=== PATIENT | female | born 1975 | race Caucasian/White ===

== ENCOUNTER 2024-04-04 17:03 | Emergency (ER) | payer OTHER, SELFPAY ==
[2024-04-04 17:07] VITALS: BP 119/88
[2024-04-04 17:39] LABS: % Basophils 1.2 % (0-2); % Eosinophils 1.7 % (0-6); % Immature Granulocytes 0.1 % (0-0.5); % Lymphocytes 39.6 % (20.5-51.1); % Monocytes 6.5 % (1.7-9.3); % Neutrophils 50.9 % (42.2-75.2); Absolute Basophils 0.1 10^3/uL (0-0.2); Absolute Eosinophils 0.1 10^3/uL (0-0.7); Absolute Monocytes 0.5 10^3/uL (0.1-0.6); Absolute Neutrophils 3.9 10^3/uL (1.4-6.5); Hematocrit 37.2 % (37.0-47.0); Hemoglobin 12.5 g/dL (12.0-16.0); Mean Corp Hgb Conc. 33.6 g/dL (33.0-37.0); Mean Corpuscular Hgb 29.8 pg (27.0-31.0); Mean Corpuscular Volume 88.6 fL (81.0-99.0); Mean Platelet Volume 9.4 fL (7.4-10.4); Nucleated Red Blood Cells % 0 %; Platelet Count 415 10^3/uL (130-400); Red Cell Dist. Width 13.2 % (11.5-14.5); White Blood Cell Count 7.6 10^3/uL (4.8-10.8)
[2024-04-04 17:52] LABS: ALT (SGPT) 20 U/L (0-35); AST (SGOT) 21 U/L (14-36); Albumin 4.6 g/dl (3.5-5.0); Alkaline Phosphatase 63 U/L (38-126); Blood Urea Nitrogen 8 mg/dl (7-17); Calcium 9.3 mg/dl (8.4-10.2); Carbon Dioxide 25 mmol/L (22-30); Chloride 102 mmol/L (98-107); Glucose 100 mg/dl (70-99); Potassium 4.2 mmol/L (3.5-5.1); Sodium 140 mmol/L (135-145); Total Bilirubin 0.2 mg/dl (0.2-1.3); Total Protein 7.5 g/dl (6.3-8.2); eGFR > 60.00
[2024-04-04 19:09] VITALS: BP 122/70
--- NOTE | 2024-04-04 21:20 | ED.GENMED ---
History of Present Illness
General
Chief Complaint: Vaginal Bleeding
Time Seen by Provider: 04/04/24 19:21
History of Present Illness
History of Present Illness:
48-year-old female without significant past medical history presenting to the emergency department for persistent vaginal bleeding. Patient reports for the past month she has had vaginal bleeding. She has been following closely with her
collar pointer, had an outpatient ultrasound that showed a uterine fibroid. She subsequently had a biopsy of the fibroid, however they did not get enough tissue for adequate sample. No some generalized cramping, without any significant pain. Her
collar pointer offered her oral contraceptive pills, however she declined. She is concern for malignant process, denies known history of cancer in her family or any personal history. Denies any urinary complaints. Notes that she previously was
having normal menstrual cycles. Does report some occasional dizziness and lightheadedness, is concerned about her blood counts. Denies history of anemia or requirement for blood transfusion. Does note that she has had a few palpitations as well,
denies known cardiac history. Denies additional acute medical complaints
Past History
Past History
ED Past Medical History: None
ED Past Surgical History: Cholecystectomy, and Gynecological
Social History
Tobacco: Non-smoker
Phy Exam
Physical Exam
Physical Exam:
General: Well-appearing, no clinical signs of dehydration, nontoxic and in no acute distress
HEENT: protecting airway
Neck: appears supple
CV: Normal heart rate, regular rhythm, no evidence of cyanosis
Resp: No accessory muscle use, no increased work of breathing, lungs clear to auscultation bilaterally
Abd: Soft and non-distended, no tenderness to palpation
Extremities: No deformities, no swelling, no erythema
Neuro: alert, no focal neurologic deficit
: deferred
Rectal: deferred
Psych: Normal affect
Skin: Intact
Course
Orders/Labs/Results
Orders:
Orders
04/04/24 17:14
Complete Blood Count/With Diff Urgent
Comprehensive Metabolic Panel Urgent
04/04/24 20:03
US Pelvis Only (non-obstetric) Urgent
Comment:
Reason For Exam: dysfunctional uterine bleeding
04/04/24 21:20
Urinalysis Urgent
04/04/24 21:22
Electrocardiogram (*1) Stat
Reason for Study: Palpitations
Electrocardiogram (*1) Urgent
EKG- Treatment ONCE
Abnormal Lab Results
04/04/24
17:14
Plt Count 415 H 10^3/uL
(130-400)
Glucose 100 H mg/dl
(70-99)
04/04/24 17:14
04/04/24 17:14
Vital Signs
Initial and Last Documented VS:
Initial Vital Signs
Pulse Resp BP Pulse Ox
88 18 119/88 99
04/04/24 17:07 04/04/24 17:07 04/04/24 17:07 04/04/24 17:07
Last Documented Vital Signs
Pulse Resp BP Pulse Ox
80 20 122/70 100
04/04/24 19:09 04/04/24 19:09 04/04/24 19:09 04/04/24 19:09
MDM/Problems Addressed
MDM/Problems Addressed:
48-year-old female without significant past medical history presenting for increased vaginal bleeding and prolonged menstrual cycle. Vital signs are normal.
On exam patient is very well-appearing, nontoxic, without clinical signs of volume depletion or dehydration. Abdominal exam is benign, no tenderness to abdomen, no tenderness to the back. Ultimately suspect dysfunctional uterine bleeding. Patient
reports that her workup for her symptoms have been done at [facility], recently had an ultrasound completed on 03/25 which showed a 5 cm fibroid, for which her doctor tried to get a biopsy of, unsuccessful. She is concerned regarding the
fibroid and expresses primary concern for cancer as source of her bleeding. Ultrasound report reviewed by me, no abnormality to the ovaries. Patient had screening laboratory analysis by assessment, normal hemoglobin. At this time no concern for
symptomatic anemia or significant hemorrhage. No indication for CT abdominal imaging, no reproducible tenderness to abdomen. Patient offered a repeat ultrasound of the pelvis, and she would like to proceed with this testing. Will also screen
with EKG, and noted some palpitations prior to arrival.
21:40 - Patient no longer wants to wait for ultrasound. Feel reasonable, given hemodynamic stability and outpatient gynecologic following. EKG obtained, nonischemic without evidence of arrhythmia. Feel stable for discharge with continued
gynecologic follow-up. Return precautions discussed and patient verbalized understanding
*Critical Care Note
Total Time (30-74mins, 75-104mins- exclusive of procedures): Not Applicable
ED Attending Note
-
Portions of this chart may have been created with voice recognition software.� Occasional wrong word or��sound alike� substitutions may have occurred due to the inherent limitations of voice recognition software.
Discharge Plan
Departure
Referrals:
Dennis Carpio MD [Family Provider] -
Interventions
Interventions:
*Risk Screen - Suicide Last Done: 04/04/24 17:09
*Neglect/Abuse Screening Last Done: 04/04/24 17:09
Discharge Date and Time
Print Language: LITHUANIAN
[2024-04-04 21:43] VITALS: BP 123/85
== END 2024-04-04 21:45 | disposition home or self-care (01) ==
LOC: EMR 17:03
PROVIDERS: Emergency Medicine; EMERGENCY PHYSICIAN Student in an Organized Health Care Education/Training Program; FAMILY PHYSICIAN Internal Medicine
DX: N93.8 Other specified abnormal uterine and vaginal bleeding (principal); D25.9 Leiomyoma of uterus, unspecified; R00.2 Palpitations; Z90.49 Acquired absence of other specified parts of digestive tract
CPT/HCPCS: 99284; 80053; 85025; 93005

== ENCOUNTER 2024-04-12 07:01 | Day surgery (SDC) | payer OTHER, SELFPAY ==
[2024-04-12] VITALS (9 sets, daily range): BP systolic 90–106; BP diastolic 53–72; BMI 22.7
[2024-04-12] MEDS: CELEBREX 200 MG PO (11:02)
[2024-04-12] MEDS: TYLENOL 1000 MG PO (11:02)
== END 2024-04-12 14:27 | disposition home or self-care (01) ==
LOC: SDS 07:01
PROVIDERS: ATTENDING PHYSICIAN Obstetrics & Gynecology
DX: N87.9 Dysplasia of cervix uteri, unspecified (principal); K31.A0 Gastric intestinal metaplasia, unspecified; N93.9 Abnormal uterine and vaginal bleeding, unspecified; R93.89 Abnormal findings on diagnostic imaging of other specified body structures
CPT/HCPCS: 58558; 88305; 86850; 86900; 86901

== ENCOUNTER 2024-08-09 06:06 | Day surgery (SDC) | payer OTHER, SELFPAY ==
[2024-08-05 11:00] LABS: % Basophils 1.3 % (0-2); % Eosinophils 1.6 % (0-6); % Immature Granulocytes 0.2 % (0-0.5); % Lymphocytes 38.1 % (20.5-51.1); % Monocytes 5.9 % (1.7-9.3); % Neutrophils 52.9 % (42.2-75.2); Absolute Basophils 0.1 10^3/uL (0-0.2); Absolute Eosinophils 0.1 10^3/uL (0-0.7); Absolute Lymphocytes 2.4 10^3/uL (1.2-3.4); Absolute Monocytes 0.4 10^3/uL (0.1-0.6); Absolute Neutrophils 3.3 10^3/uL (1.4-6.5); Hematocrit 38.9 % (37.0-47.0); Hemoglobin 12.3 g/dL (12.0-16.0); Mean Corp Hgb Conc. 31.6 g/dL (33.0-37.0); Mean Corpuscular Hgb 25.9 pg (27.0-31.0); Mean Corpuscular Volume 81.9 fL (81.0-99.0); Mean Platelet Volume 10.1 fL (7.4-10.4); Nucleated Red Blood Cells % 0 %; Platelet Count 382 10^3/uL (130-400); Red Blood Cell Count 4.75 10^6/uL (4.20-5.40); Red Cell Dist. Width 15.5 % (11.5-14.5); White Blood Cell Count 6.2 10^3/uL (4.8-10.8)
[2024-08-05 12:49] LABS: Blood Urea Nitrogen 13 mg/dl (7-17); Calcium 9.7 mg/dl (8.4-10.2); Carbon Dioxide 28 mmol/L (22-30); Chloride 99 mmol/L (98-107); Glucose 76 mg/dl (70-99); Potassium 4.2 mmol/L (3.5-5.1); Sodium 139 mmol/L (135-145); eGFR > 60.00
[2024-08-05 13:17] LABS: Beta HCG Quantitative < 2.39 mIU/ml
[2024-08-05 14:12] VITALS: BMI 22.1
--- NOTE | 2024-08-05 16:12 | PTCARENOTE ---
Dr Rodriguez reviewed abnormal EKG, no further action requested.
[2024-08-09] VITALS (19 sets, daily range): BP systolic 88–109; BP diastolic 58–86; BMI 22.1
[2024-08-09] MEDS: TYLENOL 1000 MG PO (06:33)
[2024-08-09] MEDS: NORMOSOL-R/PLASMALYTE-A 1000 IV (06:33)
[2024-08-09] MEDS: NEURONTIN 300 MG PO (06:33)
--- NOTE | 2024-08-09 11:20 | W.IMMPOSTOP ---
Surgical Immed Post Op Note
-
Primary Surgeon: Daniela Garner DO
Biometrics Specialist: JOHANNA Lepe
Pre-op Diagnosis: Menorrhagia, fibroid uterus, failed medical therapy, uterine/pelvic adhesions
Post-op Diagnosis: same
Procedure Performed: Robotic total laparoscopic hysterectomy bilateral salpingectomy, extensive lysis adhesions, cystoscopy
Anesthesia Type:general ET Brett
Specimen / Cultures: Uterus, cervix and bilateral fallopian tubes
Estimated Blood Loss: 10ml
FLuids: 1400mL
Urine output 100mL prior to bladder backfilling and cystoscopy; clear
Complications: none
Operative Findings: Enlarged fibroid uterus, normal appearing cervix, fallopian tubes with prior salpingectomy. Uterus is densely adherent to the anterior abdominal wall extending from the fundus down through region of bladder. Normal appearing
ovaries bilaterally.
Cystoscopy findings: normal appearing bladder wall, trigon. Ureteral jets pulsing methylene blue dye bilaterally.
Counts correct times 2.
Stable to recovery.
[2024-08-09] MEDS: SUBLIMAZE 25 MCG IV ×2 (11:41→12:00)
[2024-08-09] MEDS: DEMEROL 12.5 MG IV (12:39)
[2024-08-09] MEDS: OFIRMEV 100 IV (13:09)
[2024-08-09] MEDS: DILAUDID 0.5 MG IV (13:59)
[2024-08-09] MEDS: ZOFRAN 4 MG IV (16:02)
== END 2024-08-09 16:30 | disposition home or self-care (01) ==
LOC: SDS 06:06
PROVIDERS: ATTENDING PHYSICIAN Obstetrics & Gynecology; FAMILY PHYSICIAN Internal Medicine
DX: D25.9 Leiomyoma of uterus, unspecified (principal); N92.0 Excessive and frequent menstruation with regular cycle; N73.6 Female pelvic peritoneal adhesions (postinfective); N80.03 Adenomyosis of the uterus
CPT/HCPCS: 58571; 88307; 36415; 80048; 84702; 85025; 86850; 86900; 86901; 93005